=== PATIENT | female | born 1980 | race Caucasian/White ===

== ENCOUNTER 2018-03-15 12:55 | Emergency (ER) | payer BC, OTHER ==
[2018-03-15 13:01] VITALS: BP 139/99; PULSE 91; TEMP 98.2; BMI 28.4
--- NOTE | 2018-03-15 13:44 | PDOC ---
History of Present Illness - General Chief Complaint: Pain, Acute Stated Complaint: ABD PAIN Time Seen by Provider: 03/15/18 12:57 - History of Present Illness Initial Comments: 03/15/18 13:38 37 F with h/o PCOS presents to ED with abdominal pain. Pt states that she had sudden onset lower abdominal pain today associated with chills and diaphoresis. She endorses nausea without vomiting. The pain was severe for about 2 or 3 hours before subsiding spontaneously. Pt states that her mother gave her mylanta and a heating pad, with minimal relief of her pain. She states that the pain is worst in the RLQ but is also diffuse. Denies fevers. Denies vaginal discharge/bleeding. Denies dysuria. Is not sexually active. Past History - Past Medical History Allergies/Adverse Reactions: Allergies Allergy/AdvReac Type Severity Reaction Status Date / Time Sulfa (Sulfonamide Allergy Verified 03/15/18 12:57 Antibiotics) Home Medications: Ambulatory Orders Liraglutide [Saxenda] 1.2 mg SQ HS 03/15/18 Metformin HCl [Metformin HCl ER] 500 mg PO BID 03/15/18 Nitrofurantoin Monohyd/M-Cryst [Macrobid -] 100 mg PO BID #14 capsule 03/15/18 - Immunization History Td Vaccination: No - Suicide/Smoking/Psychosocial Hx Smoking Status: No Smoking History: Never smoked Have you smoked in the past 12 months: No Number of Cigarettes Smoked Daily: 0 Information on smoking cessation initiated: No Hx Alcohol Use: (social) Review of Systems - Review of Systems Comments:: 03/15/18 13:40 GENERAL/CONSTITUTIONAL: No fever. No weakness. HEAD, EYES, EARS, NOSE AND THROAT: No change in vision. No ear pain or discharge. No sore throat. CARDIOVASCULAR: No chest pain, no shortness of breath, no loss of consciousness RESPIRATORY: No cough, wheezing, or hemoptysis. GASTROINTESTINAL: + abdominal pain, No nausea, vomiting, diarrhea or constipation. GENITOURINARY: No dysuria, frequency, or change in urination. MUSCULOSKELETAL: No joint or muscle swelling or pain. No neck or back pain. SKIN: No rash NEUROLOGIC: No vertigo, no change in strength/sensation. ENDOCRINE: No increased thirst. No abnormal weight change. HEMATOLOGIC/LYMPHATIC: No anemia, easy bleeding, or history of blood clots. ALLERGIC/IMMUNOLOGIC: No hives or skin allergy. *Physical Exam - Vital Signs Last Vital Signs Temp Pulse Resp BP Pulse Ox 98.2 F 91 H 18 139/99 97 03/15/18 12:55 03/15/18 12:55 03/15/18 12:55 03/15/18 12:55 03/15/18 12:55 - Physical Exam Comments: 03/15/18 13:44 GENERAL: Awake, alert, and fully oriented, in no acute distress. HEAD: No signs of trauma EYES: PERRLA, EOMI, sclera anicteric, conjunctiva clear ENT: Auricles normal inspection, hearing grossly normal, nares patent, oropharynx clear without exudates. Moist mucosa NECK: Nontender, no stepoffs, Normal ROM, supple, no lymphadenopathy, JVD, or masses LUNGS: Breath sounds equal, clear to auscultation bilaterally. No wheezes, and no crackles HEART: Regular rate and rhythm, normal S1 and S2, no murmurs, rubs or gallops ABDOMEN: + diffuse TTP, most pronounced in RLQ, No guarding, no rebound. No masses EXTREMITIES: Normal range of motion, no edema. No clubbing or cyanosis. No cords, erythema, or tenderness NEUROLOGICAL: Cranial nerves II through XII intact. 5/5 strength and sensation in all extremities, Normal speech, normal gait, normal cerebellar function SKIN: Warm, Dry, normal turgor, no rashes or lesions noted. : no CMT, normal physiologic discharge, os closed, no adnexal masses ED Treatment Course - LABORATORY CBC & Chemistry Diagram: 03/15/18 13:37 03/15/18 13:35 - RADIOLOGY Radiology Studies Ordered: Category Date Time Status TRANSVAGINAL ULTRASOUND US [US] Stat Ultrasound 03/15/18 13:34 Ordered Medical Decision Making - Medical Decision Making 03/15/18 13:49 37 F with abdominal pain. Given h/o PCOS, will need to r/o torsion, especially given colicky nature of pain. Also consider ruptured ovarian cyst. Will also need to r/o acute appy given RLQ tenderness. - Labs, UA, UPT - TVUS - CTAP 03/15/18 16:32 TVUS with small R ovarian cyst, no torsion CT negative for appy Pt reassessed - states pain has subsided completely. Able to tolerate PO without issue. UA notable for UTI. Labs otherwise normal. Will DC with macrobid Pt is well appearing, with normal vitals. Clinically stable for DC at this time. I discussed the physical exam findings, ancillary test results and final diagnoses with the patient. I answered all of the patient's questions. The patient was satisfied with the care received and felt comfortable with the discharge plan and treatment plan. The patient agrees to follow up with the primary care physician within 24-72 hours. *DC/Admit/Observation/Transfer Diagnosis at time of Disposition: Abdominal pain - Discharge Dispostion Disposition: HOME Condition at time of disposition: Stable - Prescriptions Prescriptions: Nitrofurantoin Monohyd/M-Cryst [Macrobid -] 100 mg PO BID #14 capsule - Referrals Referrals: Ashley Reyes [Primary Care Provider] - - Patient Instructions Printed Discharge Instructions: DI for Ovarian Cyst Additional Instructions: Your ultrasound showed a cyst on your right ovary. Your pain may be due to a ruptured cyst. The CT scan did not show appendicitis or any other serious problem. However, it did show a small nodule in your left lung. You need to ask your primary doctor to have a repeat CT scan in 3 months to re-evaluate this. While this nodule is most likely harmless, if it gets larger, it may be a sign of cancer. If you experience worsening abdominal pain, fevers, vomiting, or any other concerning symptoms, return to the ER immediately. Otherwise, follow up with your materials handling coordinator for further evaluation of your ovarian cysts. - Post Discharge Activity - Attestations Physician Attestion: 03/15/18 16:38 I, Dr. Fernando Chaudhary MD, attest that this document has been prepared under my direction and personally reviewed by me in its entirety. I further attest, that it accurately reflects all work, treatment, procedures and medical decision -making performed by me.
[2018-03-15 13:56] LABS: BASO % 0.2 % (0-2.0); EOS % 0.4 % (0-4.5); HEMATOCRIT 42.9 % (32.4-45.2); HEMOGLOBIN 14.4 GM/dl (10.7-15.3); LYMPH % 14.8 % (8-40); MCH 32.3 pg (25.7-33.7); MCHC 33.6 g/dl (32.0-36.0); MEAN PLT VOLUME 7.9 fl (7.5-11.1); MONO % 4.4 % (3.8-10.2); NEUT % 80.2 % (42.8-82.8); PLATELET COUNT 204 K/MM3 (134-434); RBC 4.47 M/mm3 (3.60-5.2); URINE APPEARANCE Clear; URINE BILIRUBIN Negative (NEGATIVE); URINE COLOR Amber; URINE GLUCOSE (UA) Negative (NEGATIVE); URINE KETONE Negative (NEGATIVE); URINE LEUK ESTERASE 3+ (NEGATIVE); URINE NITRITE Negative (NEGATIVE); URINE PROTEIN Negative (NEGATIVE); URINE UROBILINOGEN 0.2 (0.2-1.0); WHITE BLOOD COUNT 9.9 K/mm3 (4.0-10.8)
[2018-03-15 14:02] LABS: HCG,QUALITATIVE URINE Negative
[2018-03-15 14:07] LABS: ACTIVATED PTT 24.1 SECONDS (25.2-36.5)
[2018-03-15 14:09] LABS: EPI CELLS FEW /HPF; URINE BACTERIA 1+ /hpf (NEGATIVE)
[2018-03-15 14:10] LABS: ALBUMIN 4.3 g/dl (3.5-5.0); ALK PHOS 50 U/L (32-92); ANION GAP 3 MMOL/L (8-16); BLOOD UREA NITROGEN 16 mg/dl (7-18); CALCIUM 8.9 mg/dl (8.4-10.2); CHLORIDE 101 mmol/L (98-107); CO2 28 mmol/L (22-28); CREATININE 0.7 mg/dl (0.6-1.3); GLUCOSE,RANDOM 89 mg/dl (74-106); POTASSIUM 3.6 mmol/L (3.5-5.1); SGOT/AST 24 U/L (10-42); SGPT/ALT 18 U/L (10-40); SODIUM 132 mmol/L (136-145)
[2018-03-15 14:12] LABS: INR 1.21 (0.82-1.09); PROTHROMBIN TIME (PATIENT) 13.5 SEC (10.2-13.0)
[2018-03-15 15:53] LABS: LIPASE 144 U/L (73-393)
[2018-03-15] MEDS ORDERED: NITROFURANTOIN MACROCRYSTAL 50 MG CAPSULE (FP) ONE (16:40)
[2018-03-15] MEDS ORDERED: NITROFURANTOIN MACROCRYSTAL 50 MG CAPSULE (FP) PO SCH (16:45)
== END 2018-03-15 16:50 | disposition home or self-care (01) ==
LOC: FER 12:55
DX: R10.9 Unspecified abdominal pain (principal)
CPT/HCPCS: 36415; 74177-TC; 76830-TC; 80053; 81003; 81015; 83690; 84703; 85025; 85610; 85730; 86850; 86900; 86901; 99284-25

== ENCOUNTER 2018-10-23 21:05 | Emergency (ER) | payer BC | END 2018-10-24 00:52 | disposition home or self-care (01) | LOC: FER 21:05 ==

== ENCOUNTER 2018-10-25 13:38 | Emergency (ER) | payer BC | END 2018-10-25 17:25 | disposition home or self-care (01) | LOC: FER 13:38 ==

== ENCOUNTER 2018-11-08 08:42 | Day surgery (SDC) | payer BC ==
[2018-11-07 15:14] VITALS: BMI 27.3
[2018-11-08] MEDS ORDERED: LIDOCAINE HCL/PF 2% SDV 5ML VIAL ONE (09:55)
[2018-11-08] MEDS ORDERED: PROPOFOL 20 ML ONE ×2 (09:55→10:00)
[2018-11-08] MEDS ORDERED: ceFAZolin SODIUM 1 GM VIAL ONE (09:55)
[2018-11-08] MEDS ORDERED: KETOROLAC TROMETHAMINE 30 MG/1 ML VIAL ONE (09:55)
[2018-11-08] MEDS ORDERED: DEXAMETHASONE SOD PHOSPHATE 4 MG/1 ML VIAL ONE (09:55)
[2018-11-08] MEDS ORDERED: MIDAZOLAM HCL 2 MG/2 ML SINGLE DOSE VIAL ONE (09:55)
[2018-11-08] MEDS ORDERED: SODIUM CHLORIDE 0.9% P/F 10 ML VIAL IJ ONE ×2 (09:55→09:59)
[2018-11-08] MEDS ORDERED: ceFAZolin SODIUM 1 GM VIAL IVPB ONE (10:17)
--- NOTE | 2018-11-08 10:42 | OP ---
Operative Note - Note: Operative Date: 11/08/18 Pre-Operative Diagnosis: Left ureteral stone Operation: Left ureteroscopy Findings: nl upper tract Post-Operative Diagnosis: Same as Pre-op Surgeon: Rigoberto Naik MD. Anesthesia: MAC Estimated Blood Loss (mls): 0 Drains & Tubes with Location: 22 cm 6 fr dj stent
[2018-11-08] MEDS ORDERED: ELECTROLYTE-148 SOLN 1,000 ML IV SCH (10:45)
[2018-11-08] MEDS ORDERED: PHENAZOPYRIDINE HCL 100 MG TABLET (FP) ONE (11:13)
[2018-11-08] MEDS ORDERED: ACETAMINOPHEN INJECTION 100 ML IVPB ONE (11:14)
[2018-11-08] MEDS ORDERED: SODIUM BICARBONATE 8.4% - 50 ML ONE (11:29)
[2018-11-08] MEDS ORDERED: ACETAMINOPHEN 1000 MG/100 ML VIAL (NON FORMULARY) IVPB ONE (11:30)
[2018-11-08] MEDS ORDERED: ONDANSETRON 4 MG/2 ML VIAL IVPUSH PRN (12:16)
[2018-11-08] MEDS ORDERED: oxyCODONE HCL 5 MG TABLET PO PRN ×2 (12:16)
[2018-11-08] MEDS ORDERED: ONDANSETRON 4 MG/2 ML VIAL ONE (12:29)
[2018-11-08] MEDS ORDERED: oxyCODONE HCL 5 MG TABLET ONE (12:29)
[2018-11-08] MEDS ORDERED: LACTATED RINGERS SOLUTION 1,000 ML IV SCH (12:30)
[2018-11-08] MEDS ORDERED: KETOROLAC TROMETHAMINE 30 MG/1 ML VIAL IVPUSH ONE ×2 (13:38→13:50)
[2018-11-08 15:09] VITALS: BP 127/85; PULSE 79; TEMP 98
--- NOTE | 2018-11-09 09:30 | OP ---
DATE OF OPERATION: 11/08/2018 PREOPERATIVE DIAGNOSIS: Left ureteral calculus. POSTOPERATIVE DIAGNOSIS: Left ureteral calculus. PROCEDURE PERFORMED: Left ureteroscopy and stent placement. SURGEON: Rigoberto Naik MD INDICATIONS: The patient is 38-year-old female with history of renal colic, status post an ESWL, with persistent back pain. Preoperative imaging revealed a residual 3-mm stone in the distal ureter. After discussing treatment options, including observation, the patient elected to undergo the above-stated procedure. The risks, benefits and alternative treatments were discussed in detail. All questions were answered. DESCRIPTION OF PROCEDURE: The patient was brought to the operating room and placed in the supine position. Once general anesthesia was administered, the patient was transferred to the dorsal lithotomy position, prepped and draped in the standard sterile fashion. Intravenous Ancef was given. At this time a 23-Somali cystoscope sheath was placed into the bladder under direct vision. There were no ureteral strictures. The bladder was otherwise unremarkable. At this point a 0.038 sensor wire was placed into the renal pelvis. This was confirmed fluoroscopically. The wire went up without difficulty. At this time an 8.5-Somali semi-rigid ureteroscope was passed into the distal ureter, which was inspected up until the proximal ureter, and no evidence of the ureteral calculus was identified. At this point the ureteroscope was removed. A 7.5-Somali flexible Storz ureteroscope was passed into the renal pelvis. The entire collecting system was inspected, upper, mid and lower poles, several times, and there was no evidence of calculus within the kidney or renal collecting system. Again, the entire ureter was inspected with the flexible scope on the way down and there was no evidence of calculus noted. At this time a 22-cm 6-Somali JJ stent was placed over the guidewire. All the instruments were removed. The bladder was drained. The patient was brought to the recovery room in stable and satisfactory condition. Lul HOLGUIN/[id number]
== END 2018-11-08 14:55 | disposition home or self-care (01) ==
LOC: JASU-SURG 08:42
PROVIDERS: ATTEND Urology
PROC: 0T9780Z Drainage of Left Ureter with Drainage Device, Via Natural or Artificial Opening Endoscopic (ICD-10-PCS; principal; 2018-11-08 10:00)
DX: N20.1 Calculus of ureter (principal)
CPT/HCPCS: 76000-TC-FY; 84703; 94760; J0131